=== PATIENT | male | born 1965 | race Caucasian/White ===

== ENCOUNTER → 2016-10-31 | Outpatient (CLI) | payer BC ==
[2016-10-31 09:05] LABS: Basophils # (A) 0.1 k/uL (0-0.2); Basophils % (A) 1 %; CH 31.7; CHCM 34.7; Eosinophils # (A) 0.4 k/uL (0-0.7); Eosinophils % (A) 7 %; HCT 43.1 % (39.0-53.0); HDW 2.72; HGB 14.9 gm/dL (13.0-17.5); Luc # (Auto) 0.21; Luc % (Auto) 4; Lymphocytes # (A) 1.2 k/uL (1.0-4.8); Lymphocytes % (A) 22 %; MCH 31.6 pg (25.0-35.0); MCHC 34.4 g/dL (31.0-37.0); MCV 91.9 fL (80.0-100.0); Mean Platelet Volume 7.9; Monocytes # (A) 0.3 k/uL (0-1.0); Monocytes % (A) 5 %; Neutrophils # (A) 3.4 k/uL (1.3-7.7); Neutrophils % (A) 61 %; RBC 4.69 m/uL (4.30-5.90); RDW 12.4 % (11.5-15.5); WBC 5.6 k/uL (3.8-10.6); WBC (Perox) 5.82
[2016-10-31 11:03] LABS: ALT 36 U/L (21-72); AST 29 U/L (17-59); Alkaline Phosphatase 57 U/L (38-126); Anion Gap 8 mmol/L; Blood Urea Nitrogen 12 mg/dL (9-20); Calcium 9.6 mg/dL (8.4-10.2); Carbon Dioxide 28 mmol/L (22-30); Chloride 104 mmol/L (98-107); Cholesterol 208 mg/dL (<200); Glucose 107 mg/dL (74-99); HDL Cholesterol 59 mg/dL (40-60); Non-African American GFR(MDRD) >60 (>60 ml/min/1.73 sqM); Potassium 4.8 mmol/L (3.5-5.1); Sodium 140 mmol/L (137-145); Total Bilirubin 0.9 mg/dL (0.2-1.3); Total Protein 7.1 g/dL (6.3-8.2); Triglycerides 146 mg/dL (<150)
[2016-10-31 11:35] LABS: Prostate Specific Antigen 0.46 ng/mL (0.00-4.00)
== END ==
LOC: LABWHC1 08:09
PROVIDERS: ATTEND Internal Medicine
DX: Z00.00 Encounter for general adult medical examination without abnormal findings (principal); I10 Essential (primary) hypertension; E78.2 Mixed hyperlipidemia; R53.83 Other fatigue; Z12.5 Encounter for screening for malignant neoplasm of prostate
CPT/HCPCS: 36415; 80053; 80061; 84153; 84402; 84403; 85025

== ENCOUNTER → 2018-08-16 | Outpatient (CLI) | payer BC ==
--- NOTE | 2018-08-16 22:58 | CT ---
EXAMINATION TYPE: CT sinus wo con DATE OF EXAM: 08/16/2018 COMPARISON: None HISTORY: 52-year-old male chronic sinusitis and infections CT DLP: 697 mGycm Automated exposure control for dose reduction was used. TECHNIQUE: Noncontrast axial views of the paranasal sinuses were obtained. Coronal reconstructions pe rformed. FINDINGS: PARANASAL SINUSES: Severe mucosal thickening throughout the ethmoid air cells and complete opacification of the left fro ntal sinus. Partial opacification right frontal sinus. Moderate mucosal thickening bilateral sphenoid sinuses. Frothy opacification in the left maxillary sinus with trace air-fluid level and lobulated s oft tissue thickening along the floor of the sinus. Large 3.6 cm polyp or mucosal retention cyst with in the right maxillary sinus with moderate partial opacification. Reactive wilbert- osteogenesis is not seen. There is no destruction of the osseous conner of the paranasal sinuses. THE NASAL CAVITY: The osteomeatal complexes are opacified. The nasal septum shows slight leftward deviation. There is lobulated soft tissue thickening along the bilateral nasal passages. The imaged brain and orbits are normal in appearance. Mastoid air cells and middle ear cavities are well pneumatized. Reformatted images confirm above findings. IMPRESSION: 1. Findings suggest moderate to severe acute on chronic pansinusitis, likely with underlying sinonasa l polyposis. The osteomeatal complexes are opacified. 2. Leftward nasal septal deviation.
== END | disposition home or self-care (01) ==
LOC: RADCTMAIN 15:23
PROVIDERS: ATTEND Otolaryngology
DX: J34.2 Deviated nasal septum (principal)
CPT/HCPCS: 70486

== ENCOUNTER 2018-10-12 07:14 | Day surgery (SDC) | payer BC ==
[2018-10-10 12:26] VITALS: BMI 27.2
[~2018-10-12 07:14] MED LIST: DEXAMETHASONE SOD PHOSPHATE 10 MG/ML 1 ML VIAL IV ONE; DEXAMETHASONE SOD PHOSPHATE 4 MG/ML 1 ML VIAL IV ONE; FAMOTIDINE 20 MG/2 ML VIAL IV ONE; LACTATED RINGERS 1,000 ML IV SCH; LIDOCAINE 1% 20 ML VIAL (10MG/ML) FOR IV START INTRADERMA PRN; MIDAZOLAM (PF) 2 MG/2 ML VIAL IV PRN; ONDANSETRON 4 MG/2 ML VIAL IVP ONE; SCOPOLAMINE 1.5MG/72HR PATCH TRANSDERM ONE; ceFAZolin 1,000 MG in DEXTROSE/WATER 1 50ML.BAG IV ONE
[2018-10-12 07:46] VITALS: RESP 16
[2018-10-12] MEDS: OXYMETAZOLINE 0.05% NASL SPRAY 1 SPRAY BOTTLE NASAL ONE ×5 (07:49→08:14)
[2018-10-12 08:13] LABS: Glucose,Whole Blood 101 mg/dL (75-99)
[2018-10-12] MEDS ORDERED: LIDOCAINE 1% INJ 10MG/ML (20 ML MDV) ONE (08:44)
[2018-10-12] MEDS ORDERED: ePHEDrine SULFATE/0.9% NACL/PF 50 MG/5 ML SYRINGE IV ONE (08:44)
[2018-10-12] MEDS ORDERED: PROPOFOL 10 MG/ML 20 ML VIAL IV ONE (08:44)
[2018-10-12] MEDS ORDERED: fentaNYL (PF) 50 MCG/ML 2 ML AMP ONE (08:44)
[2018-10-12] MEDS ORDERED: MIDAZOLAM 2 MG/2 ML VIAL ONE (08:44)
[2018-10-12] MEDS ORDERED: DEXAMETHASONE SOD PHOS (MDV) 100 MG/10 ML VIAL ONE (08:44)
[2018-10-12] MEDS ORDERED: SUCCINYLCHOLINE CHLORIDE 100 MG/5 ML SYR IV ONE (08:44)
[2018-10-12] MEDS ORDERED: LIDOCAINE 1%-EPI 1:100,000 20 ML VIAL SUBMUCOSAL ONE (09:06)
--- NOTE | 2018-10-12 10:01 | P.OP ---
Date of Procedure: 10/12/18 Preoperative Diagnosis: Deviated nasal septum Inferior turbinate hypertrophy Chronic sinusitis Sinonasal polyposis Postoperative Diagnosis: Same Procedure(s) Performed: Septoplasty Outfracture and submucous resection of the inferior turbinates Bilateral endoscopic sinus surgery with bilateral maxillary antrostomy with removal of tissue from the maxillary sinuses, bilateral anterior and posterior ethmoidectomy, bilateral frontal and sphenoidotomies including balloon sinus plasty and polypectomies Anesthesia: JUDY Surgeon: Kurt Lagunas Estimated Blood Loss (ml): 15 Pathology: other (Nasal septal cartilage and bone and sinus contents) Condition: stable Disposition: PACU Indications for Procedure: This is a 52-year-old white male who has difficulties with chronic nasal airway obstruction and congestion as well as recurrent and chronic sinusitis - physical exam and computed tomography scan revealed deviated septum and inferior turbinate hypertrophy sinonasal polyposis Operative Findings: Nasal septum deviated to the left, inferior turbinate hypertrophy bilaterally, diffuse sinonasal polyps in the middle meatus as well as maxillary sinuses and ethmoid sinuses. Sphenoid sinuses and frontal sinuses showed mild to moderate mucosal thickening and obstruction of the ostia. Description of Procedure: The patient was brought in the operative suite and placed in a supine position. The patient underwent induction of general anesthesia with oral endotracheal intubation without difficulty. The patient was prepped and draped in usual aseptic fashion with the orbits in the operating field for monitoring throughout the case and the computed tomography scan on the computer screen for review throughout the case also. 1% lidocaine with 1-100,000 epinephrine was infused submucosally both sides nasal septum as well as lateral nasal wall and anterior tips the middle turbinates as well as the polyps in the middle meatus themselves. While this was taking vasoconstrictive effect the inferior turbinates were infractured the [place] elevator partial submucous resection inferior turbinates performed with Coblation device ablating a portion of the submucosal soft tissue and then outfractured with the [place] elevator. A left hemitransfixion incision was made with the mucoperichondrial and mucoperiosteal flap on the left elevated. Bony cartilaginous junction was disarticulated and mucoperiosteal flap on the right was elevated. Bony nasal septal deformities were removed Yi forceps. An inferior cartilaginous strip was removed leaving a full 1.5 cm caudal strut. Checking intranasally this corrected the nasoseptal deformities and the hemitransfixion incision was closed with a running 4-0 chromic suture. Full 0 endoscopic examination is performed bilaterally. Beginning on the left the polyps were debrided with microdebrider and the maxillary ostium was located with a ballpoint probe. Infundibulotomy was performed followed by uncinectomy. The maxillary antrostomy was enlarged at the expense of the anterior and posterior fontanelle taking care anteriorly not to injure the lacrimal bone. Polyps removed from the maxillary sinus with 30 endoscope and giraffe forceps. Anterior and posterior ethmoidectomy performed with microdebrider including polypectomy. Balloon sinus plasty with the [employer] white guided system was performed of the frontal and sphenoid sinuses as well as these openings enlarged further with forceps and the sinuses were explored endoscopically. Once this was completed attention was turned to the right where the procedures were followed as they were in the left including polypectomy infundibulotomy uncinectomy maxillary antrostomy with removal of tissue from the maxillary sinus anterior and posterior ethmoidectomy and frontal osteotomy and sphenoid osteotomy with exploration. There were small polyps in the sphenoid sinuses bilaterally which were removed bilaterally. Once this was completed a pledget of standard nasal pore nasal dressing was placed the middle meatus under direct visualization and bilateral Farfan airway splint coated bacitracin ointment were placed in nasal cavities and sutured trans-septally with a 4-0 nylon suture. The patient was then allowed to emerge from general anesthesia having tolerated procedure well and was extubated in the operating suite and transferred to postop recovery area in satisfactory condition.
[2018-10-12 10:11] VITALS: TEMP 97.4
[2018-10-12] MEDS: HYDROmorphone 0.5 MG/0.5 ML SYRINGE IVP PRN ×2 (10:19→10:26)
[2018-10-12 11:29] VITALS: BP 137/93; PULSE 89
[2018-10-12] MEDS ORDERED: HYDROcodone/APAP 7.5-325MG 1 EACH TAB PO ONE (11:42)
== END 2018-10-12 12:24 | disposition home or self-care (01) ==
LOC: OR 07:14
PROVIDERS: ATTEND Otolaryngology
DX: J34.2 Deviated nasal septum (principal); J34.3 Hypertrophy of nasal turbinates; J32.9 Chronic sinusitis, unspecified; J33.8 Other polyp of sinus; I10 Essential (primary) hypertension; E78.5 Hyperlipidemia, unspecified; Z79.899 Other long term (current) drug therapy; Z79.1 Long term (current) use of non-steroidal anti-inflammatories (NSAID); Z79.52 Long term (current) use of systemic steroids; Z90.79 Acquired absence of other genital organ(s); Z85.47 Personal history of malignant neoplasm of testis
CPT/HCPCS: 88305; 88300; 30520; 30140; 31267; 31253; 31259; C1726; J2250; J1100 ×2; J2405; J2001; J3010; J0690; J0330; J2704; J1170

== ENCOUNTER 2019-10-03 04:28 | Emergency (ER) | payer BC ==
[2019-10-03] MEDS ORDERED: FAMOTIDINE 20 MG/2 ML VIAL IV STA (04:49)
[2019-10-03] MEDS ORDERED: methylPREDNISolone SOD SUCCI 125 MG/2 ML VIAL IV STA (04:49)
--- NOTE | 2019-10-03 05:04 | ED ---
General Adult HPI <John Davis - Last Filed: 10/03/19 07:08> - General Source: patient, family Mode of arrival: ambulatory Limitations: no limitations - History of Present Illness Onset/Timin -: hour(s) Location: face Consistency: constant Improves with: none Worsens with: none Associated Symptoms: denies other symptoms Treatments Prior to Arrival: other (Benadryl) <Tod Arellano - Last Filed: 10/03/19 21:14> - General Chief complaint: Allergic Reaction Stated complaint: Allergic Reaction Time Seen by Provider: 10/03/19 04:42 - History of Present Illness Initial comments: This patient is 53-year-old man presenting to be evaluated for what he believes is ALLERGIC reaction. The patient states that he woke from sleep with a feeling like his face was uncomfortable. He noticed that there was swelling at the right corner of his mouth. This progressed to involve the lips and cheek. Patient is not aware of any new exposures. No dyspnea or wheezing. No nausea, vomiting, or diarrhea. No pruritus. Patient has history of hypertension and does take benazepril. Patient states that he took a dose of Benadryl and when things did not seem to be improving and were in fact may be getting worse he felt he should be evaluated (Tod Arellano) - Related Data Home Medications Medication Instructions Recorded Confirmed Benazepril HCl [Lotensin] 20 mg PO HS 10/10/18 10/10/18 Cetirizine HCl [Zyrtec] 10 mg PO DAILY 10/10/18 10/10/18 Cod Liver Oil 1 each PO DAILY 10/10/18 10/10/18 Ibuprofen [Motrin] 800 mg PO Q6H PRN 10/10/18 10/10/18 Multivit-Min/Ferrous Sulfate [One 1 each PO DAILY 10/10/18 10/10/18 Daily Multivitamin-Mineral] amLODIPine BESYLATE 5 mg PO HS 10/10/18 10/10/18 methylPREDNISolone Dose Pack 4 mg PO DIRECTED 10/10/18 10/10/18 [Medrol Dose Pack] Allergies Allergy/AdvReac Type Severity Reaction Status Date / Time No Known Allergies Allergy Verified 10/03/19 04:35 Review of Systems ROS Other: All systems not noted in ROS Statement are negative. <John Davis - Last Filed: 10/03/19 07:08> ROS Other: All systems not noted in ROS Statement are negative. Constitutional: Denies: fever, chills Eyes: Denies: eye pain ENT: Denies: throat pain, dental pain, congestion Respiratory: Denies: cough, dyspnea, wheezes, stridor Cardiovascular: Denies: chest pain, palpitations, syncope Gastrointestinal: Denies: abdominal pain, nausea, vomiting, diarrhea Skin: Reports: as per HPI, other (Rectal facial swelling). Denies: rash Neurological: Denies: headache <Tod Arellano - Last Filed: 10/03/19 21:14> ROS Statement: Those systems with pertinent positive or pertinent negative responses have been documented in the HPI. Past Medical History Past Medical History: Cancer, Hyperlipidemia, Hypertension Additional Past Medical History / Comment(s): ALLERGIES. TESTICULAR CA 1998. SINUS PROBLEMS W/ POLYPS. History of Any Multi-Drug Resistant Organisms: None Reported Past Surgical History: Cholecystectomy Additional Past Surgical History / Comment(s): TESTICLE REMOVAL Past Anesthesia/Blood Transfusion Reactions: No Reported Reaction Past Psychological History: No Psychological Hx Reported Smoking Status: Never smoker Past Alcohol Use History: Occasional Past Drug Use History: None Reported - Past Family History Mother Family Medical History: Cancer Additional Family Medical History / Comment(s): PANCREATIC Father Family Medical History: Cancer Additional Family Medical History / Comment(s): LUNG CA <Tod Arellano - Last Filed: 10/03/19 21:14> General Exam Limitations: no limitations General appearance: alert, in no apparent distress Head exam: Present: atraumatic, normocephalic Eye exam: Present: normal appearance. Absent: scleral icterus, conjunctival injection, periorbital swelling, periorbital tenderness ENT exam: Present: other (There is angioedema involving the right side of the upper and lower lip as well as the adjacent cheek.) Neck exam: Present: normal inspection, full ROM. Absent: tenderness, meningismus, lymphadenopathy Respiratory exam: Present: normal lung sounds bilaterally. Absent: respiratory distress, wheezes, rales, rhonchi, stridor Cardiovascular Exam: Present: regular rate, normal rhythm, normal heart sounds. Absent: systolic murmur, diastolic murmur, rubs, gallop GI/Abdominal exam: Present: soft. Absent: distended, tenderness, guarding, rebound, rigid, mass <TrachyTod - Last Filed: 10/03/19 21:14> Course Vital Signs 10/03/19 10/03/19 10/03/19 04:30 05:18 05:20 Temperature 98.1 F Pulse Rate 96 Respiratory 20 Rate Blood Pressure 143/100 137/90 137/90 O2 Sat by Pulse 100 96 97 Oximetry 10/03/19 10/03/19 10/03/19 05:22 05:24 05:26 Temperature Pulse Rate Respiratory Rate Blood Pressure 137/90 137/90 137/90 O2 Sat by Pulse 96 95 96 Oximetry 10/03/19 10/03/19 10/03/19 05:28 05:30 05:32 Temperature Pulse Rate Respiratory Rate Blood Pressure 137/90 137/90 137/90 O2 Sat by Pulse 95 96 96 Oximetry 10/03/19 10/03/19 10/03/19 05:34 05:36 05:38 Temperature Pulse Rate Respiratory Rate Blood Pressure 137/90 137/90 137/90 O2 Sat by Pulse 95 95 95 Oximetry 10/03/19 10/03/19 10/03/19 05:40 05:42 05:44 Temperature Pulse Rate Respiratory Rate Blood Pressure 137/90 137/90 137/90 O2 Sat by Pulse 96 96 97 Oximetry 10/03/19 10/03/19 10/03/19 05:46 05:48 05:50 Temperature Pulse Rate Respiratory Rate Blood Pressure 137/90 137/90 137/90 O2 Sat by Pulse 97 95 96 Oximetry 10/03/19 10/03/19 10/03/19 05:52 05:54 05:56 Temperature Pulse Rate 84 Respiratory 11 L Rate Blood Pressure 137/90 144/88 144/88 O2 Sat by Pulse 98 96 98 Oximetry 10/03/19 10/03/19 10/03/19 05:58 06:00 06:02 Temperature Pulse Rate 97 93 Respiratory 20 14 Rate Blood Pressure 144/88 144/88 144/88 O2 Sat by Pulse Oximetry 10/03/19 10/03/19 10/03/19 06:04 06:06 06:08 Temperature Pulse Rate 94 96 96 Respiratory 20 15 6 L Rate Blood Pressure 144/88 144/88 144/88 O2 Sat by Pulse Oximetry 10/03/19 10/03/19 10/03/19 06:10 06:12 06:14 Temperature Pulse Rate 97 94 101 H Respiratory 11 L 15 16 Rate Blood Pressure 144/88 144/88 144/88 O2 Sat by Pulse Oximetry 10/03/19 10/03/19 10/03/19 06:16 06:18 06:20 Temperature Pulse Rate 99 99 98 Respiratory 14 14 16 Rate Blood Pressure 144/88 144/88 144/88 O2 Sat by Pulse Oximetry 10/03/19 10/03/19 10/03/19 06:22 06:50 07:13 Temperature 98 F Pulse Rate 101 H 110 H 104 H Respiratory 15 16 20 Rate Blood Pressure 144/88 136/82 123/86 O2 Sat by Pulse 97 95 Oximetry 10/03/19 08:02 Temperature 98 F Pulse Rate 91 Respiratory 18 Rate Blood Pressure 126/76 O2 Sat by Pulse 94 L Oximetry Disposition Is patient prescribed a controlled substance at d/c from ED?: No Time of Disposition: 07:08 <John Davis - Last Filed: 10/03/19 07:08> Is patient prescribed a controlled substance at d/c from ED?: No <Tod Arellano - Last Filed: 10/03/19 21:14> Clinical Impression: Angioedema Disposition: HOME SELF-CARE Condition: Good Instructions (If sedation given, give patient instructions): Angioedema (ED) Additional Instructions: Stopped taking Lotensin and follow up with your doctor for another blood pressure medication. Referrals: Sourav Amaya MD [Primary Care Provider] - 1-2 days
[2019-10-03] MEDS ORDERED: EPINEPHrine 1 MG/ML 1 ML AMP IM STA (05:44)
[2019-10-03] MEDS ORDERED: TRANEXAMIC ACID 1,000 MG in SODIUM CHLORIDE 0.9% 100 ML IVPB ONE (06:00)
[2019-10-03] MEDS ORDERED: diphenhydrAMINE 50 MG/ML 1 ML VIAL IVP STA ×2 (06:41→06:43)
[2019-10-03 07:14] VITALS: TEMP 98
[2019-10-03 08:06] VITALS: BP 126/76; PULSE 91; RESP 18
== END 2019-10-03 08:02 | disposition home or self-care (01) ==
LOC: EC 04:28
DX: T78.3XXA Angioneurotic edema, initial encounter (principal); I10 Essential (primary) hypertension; Z79.52 Long term (current) use of systemic steroids; Z79.899 Other long term (current) drug therapy; Z91.09 Other allergy status, other than to drugs and biological substances; Z85.47 Personal history of malignant neoplasm of testis; Z90.79 Acquired absence of other genital organ(s); Z53.8 Procedure and treatment not carried out for other reasons
CPT/HCPCS: 99283; 96365; 96375 ×3; 96372; J0171; J1200; J2930

== ENCOUNTER → 2021-11-19 | Outpatient (CLI) | payer BC ==
[2021-11-19 14:25] LABS: ALT 17 U/L (10-49); AST 23 U/L (14-35); African American GFR (CKD) 86.9 (60.0-200.0); Albumin 4.3 g/dL (3.8-4.9); Albumin/Globulin Ratio 1.92 (1.60-3.17); Alkaline Phosphatase 60 U/L (41-126); BUN/Creat Ratio 10.83 Ratio (12.00-20.00); Blood Urea Nitrogen 11.8 mg/dL (9.0-27.0); Calcium 8.9 mg/dL (8.7-10.3); Carbon Dioxide 26.1 mmol/L (20.0-27.5); Chloride 104 mmol/L (96-109); Chol/HDL Ratio 3.56 Ratio; Globulin 2.2 g/dL (1.6-3.3); Glucose 112 mg/dL (70-110); Potassium 4.5 mmol/L (3.5-5.5); Sodium 138 mmol/L (135-145); Total Protein 6.5 g/dL (6.2-8.2)
== END | disposition home or self-care (01) ==
LOC: LABWHC1 08:50
PROVIDERS: ATTEND Nurse Practitioner
DX: I10 Essential (primary) hypertension (principal)
CPT/HCPCS: 36415; 80053; 80061

== ENCOUNTER → 2021-12-30 | Outpatient (CLI) | payer BC ==
[~2021-12-30] MED LIST changes: -DEXAMETHASONE SOD PHOSPHATE 10 MG/ML 1 ML VIAL IV ONE; -DEXAMETHASONE SOD PHOSPHATE 4 MG/ML 1 ML VIAL IV ONE; -FAMOTIDINE 20 MG/2 ML VIAL IV ONE; -LACTATED RINGERS 1,000 ML IV SCH; -LIDOCAINE 1% 20 ML VIAL (10MG/ML) FOR IV START INTRADERMA PRN; -MIDAZOLAM (PF) 2 MG/2 ML VIAL IV PRN; -ONDANSETRON 4 MG/2 ML VIAL IVP ONE; +REGADENOSON 0.4 MG/5 ML SYRINGE IV PRN; -SCOPOLAMINE 1.5MG/72HR PATCH TRANSDERM ONE; -ceFAZolin 1,000 MG in DEXTROSE/WATER 1 50ML.BAG IV ONE
--- NOTE | 2021-12-30 12:54 | NM ---
EXAMINATION TYPE: NM stress lexiscan cardiolite DATE OF EXAM: 12/30/2021 COMPARISON: NONE HISTORY: Essential hypertension. Family history of heart attack. Chest pressure and pain. TECHNIQUE: After the intravenous administration of 10.08 mCi Tc 99m Sestamibi - Cardiolite resting S PECT images acquired 60 minutes post injection. The patient received 0.4mg Lexiscan, 23.5 mCi Tc 99m Sestamibi - Stress images obtained [address] injection FINDINGS: Review of stress and rest SPECT images demonstrates no distinct perfusion abnormality. Gated analysi s shows normal wall motion with an estimated left ventricular ejection fraction of 63 %. IMPRESSION: No scintigraphic evidence for reversible ischemia.
--- NOTE | 2021-12-31 11:05 | CA ---
Lexiscan Nuclear Stress Test Report Name: Zaheer العلي Exam Date: 12/30/2021 11:21 Exam Location: [facility] Ht (in): 74 Wt (lb): 228 BSA: 2.30 Ordering Phys: Roger Calles MD Referring Phys: Jossy Mcconnell Technologist: Meet King Age: 56 Gender: M : 1965 Procedure CPT: Indications: I10 Hypertension R07.89 chest pressure ICD-10 Codes: Patient History: Chest pressure, hypertension, Family history of heart disease Medications: Diclofenac, citrizine, Clonidine, Singulair, Primatine, So Meds past 24 hrs: Pretest Chest Pain: STRESS TEST Lexiscan Protocol Exercise Duration (min:sec): 02:[address] Depressions (mm): Angina Score: Amin Score: Resting HR (bpm): 81 Peak HR (bpm): 102 Resting BP (mmHg): 156 / 103 Peak BP (mmHg): 166 / 113 MPHR: 162 Target HR: 138 % MPHR: 63 METS: 1.0 Total Dose: Peak Dose: Atropine: Double Product: 54642 BP Response: Stress Termination: Infusion complete Stress Symptoms: No chest pain or symptoms Stress Summary: ECG ANALYSIS Resting ECG: Stress ECG: CONCLUSIONS Baseline heart rate 81 beats a minute, Baseline blood pressure 150 60 103 mmHg Baseline 12 EKG shows sinus rhythm with normal ST segments Patient received Lexiscan infusion per protocol There is no seizures for ischemia no arrhythmias noted Heart rate and blood pressure remained stable Nuclear portion will be reported separately Dr. Yared Fernandes MD (Electronically Signed) Final Date: 31 Dec 2021 11:04
== END | disposition home or self-care (01) ==
LOC: RADNMMAIN 08:01
PROVIDERS: ATTEND Family Medicine
DX: I10 Essential (primary) hypertension (principal); R07.89 Other chest pain; Z82.49 Family history of ischemic heart disease and other diseases of the circulatory system
CPT/HCPCS: 93017; 78452; A9500; J2785

== ENCOUNTER → 2022-02-18 | Outpatient (CLI) | payer BC ==
--- NOTE | 2022-02-18 12:39 | CONS ---
CONSULTATION 56-year-old gentleman has been evaluated in [facility] for possible obstructive sleep apnea-hypopnea syndrome. HISTORY OF PRESENT ILLNESS/SLEEP-WAKE EVALUATION: SLEEP SCHEDULE: Patient's usual sleep schedule from 10:30 p.m. to 6:00 am basically 7 days a week. FALLING ASLEEP: Sometimes he has problems with falling asleep. He used to read in the bedroom. DURING SLEEP: He sleeps on the back and side position. He snores. Sometimes sleeps on the chair and wakes up from sleep with episodes of gasping for air and dry mouth up to 3 times and up to 2 episodes of nocturia. Sometimes symptoms of restless legs. No history of hypnagogic hallucinations, sleep paralysis or cataplexy. DURING THE DAY/SLEEP WAKE EVALUATION: In the morning the patient wakes up tired, falling asleep during the day. [place] Sleepiness Scale is 8. Sometimes he takes naps during the day. He drinks up to 4 coffee a day. MEDICAL HISTORY: Positive for hypertension, allergy, COVID-19 in November of 2020, right testicle cancer. PAST SURGICAL HISTORY: Surgical treatment of right testicular cancer in 1998, cholecystectomy. MEDICATIONS: Metoprolol 100 mg once a day, montelukast 10 mg once a day, Diclofenac misoprostol 75- 100 mg once a day, once a day, the patient is planning to start new medication for blood pressures today following recommendation of his primary care doctor. SOCIAL HISTORY: Negative for smoking, alcohol consumption occasional. FAMILY HISTORY: Hypertension, snoring, bronchitis. REVIEW OF SYSTEMS: Snoring, multiple awakenings from sleep, episodes of sleepiness during the day. PHYSICAL EXAM: Pleasant gentleman without distress. BP 155/104, HR 65, height 6 feet and 0.5 inches, weight 229 pounds, body mass index 29.1, temperature 97.0, oxygen saturation at room air 98%. Oropharynx: Low position of soft palate, Mallampati 3. Neck is wide 18 inches in circumference. Neck: Supple, no JVD. Thyroid is not palpable. LUNGS: Clear to percussion and to auscultation. Good air exchange. No wheezing or rhonchi. HEART: S1, S2 regular. No murmurs, gallops, or rubs. ABDOMEN: Soft and nontender. Bowel sounds are present. No organomegaly appreciated. EXTREMITIES: No clubbing or cyanosis. FUND DIRECTOR: Awake, alert, and oriented X3. Cranial nerves 2 to 7 intact. There is no fasciculation or atrophy. noted. No focal deficits observed. IMPRESSION: 1. Snoring, multiple awakenings from sleep with gasping for air, low position of soft palate, Mallampati 3, wide neck, 18 inches in circumference, episodes of sleepiness, obstructive sleep apnea-hypopnea syndrome. 2. Overweight, borderline to obesity, BMI 29.1. 3. Hypertension. 4. Status post COVID-19 in November 2020. 5. ALLERGIES. 6. History of right testicular cancer, treated surgically in 1998. 7. Status post cholecystectomy. PLAN: 1. Polysomnography for evaluation of patient's breathing during sleep. 2. CPAP/BiPAP titration if sleep study confirms obstructive sleep apnea-hypopnea syndrome. 3. Preferable position during sleep on the side. 4. No driving if patient feels any sleepiness. 5. I will see patient for follow up visit to explain results of testing and following plan. Thank you very much for referring this patient for consultation. Sincerely, Roque Simmons MD, PhD, FAASM Diplomat of [place] [employer] Sleep Medicine Board of [place] [employer] Medical Billing Associate of [facility] [place] MMODL / IJN: [id number] /
== END ==
LOC: SLEEP 10:36
PROVIDERS: ATTEND Internal Medicine
DX: G47.33 Obstructive sleep apnea (adult) (pediatric) (principal); E66.3 Overweight; Z68.29 Body mass index [BMI] 29.0-29.9, adult; I10 Essential (primary) hypertension; Z86.16 Personal history of COVID-19; T78.40XA Allergy, unspecified, initial encounter; Z90.49 Acquired absence of other specified parts of digestive tract; Z85.47 Personal history of malignant neoplasm of testis; Z98.890 Other specified postprocedural states; Z79.899 Other long term (current) drug therapy
CPT/HCPCS: 99211

== ENCOUNTER 2022-02-26 02:13 | Emergency (ER) | payer BC ==
--- NOTE | 2022-02-26 02:31 | ED ---
Allergic Reaction HPI - General Chief complaint: Allergic Reaction Stated complaint: allergic reaction Time Seen by Provider: 02/26/22 02:30 Source: patient, family, RN notes reviewed, old records reviewed Mode of arrival: ambulatory Limitations: no limitations - History of Present Illness Initial Comments: This is a 48-year-old male to the emergency department for evaluation patient presents today for evaluation regards to ALLERGIC reaction. Significant swelling. No travel history or sick contacts. No fever cough or congestion. Patient does have history of food ALLERGY history of angioedema presents with those findings here today. Patient did take all at antihistamines and steroids here in the ER MD Complaint: allergic reaction, facial swelling -: days(s) Exposure: food Symptoms: facial swelling, lip swelling Severity: moderate Treatment Prior to Arrival: none Previous Allergy History: angioedema - Related Data Home Medications Medication Instructions Recorded Confirmed Benazepril HCl [Lotensin] 20 mg PO HS 10/10/18 10/10/18 Cetirizine HCl [Zyrtec] 10 mg PO DAILY 10/10/18 10/10/18 Cod Liver Oil 1 each PO DAILY 10/10/18 10/10/18 Ibuprofen [Motrin] 800 mg PO Q6H PRN 10/10/18 10/10/18 Multivit-Min/Ferrous Sulfate [One 1 each PO DAILY 10/10/18 10/10/18 Daily Multivitamin-Mineral] amLODIPine BESYLATE 5 mg PO HS 10/10/18 10/10/18 methylPREDNISolone Dose Pack 4 mg PO DIRECTED 10/10/18 10/10/18 [Medrol Dose Pack] Allergies Allergy/AdvReac Type Severity Reaction Status Date / Time YANET Inhibitors Allergy Swelling Verified 02/26/22 02:23 ARB-Angiotensin Receptor Allergy Swelling Verified 02/26/22 02:23 Antagonist mold Allergy Rash/Hives Verified 02/26/22 02:23 tree nut Allergy Rash/Hives Verified 02/26/22 02:23 Review of Systems ROS Statement: Those systems with pertinent positive or pertinent negative responses have been documented in the HPI. ROS Other: All systems not noted in ROS Statement are negative. Past Medical History Past Medical History: Cancer, Hyperlipidemia, Hypertension Additional Past Medical History / Comment(s): ALLERGIES. TESTICULAR CA 1998. SINUS PROBLEMS W/ POLYPS. History of Any Multi-Drug Resistant Organisms: None Reported Past Surgical History: Cholecystectomy Additional Past Surgical History / Comment(s): TESTICLE REMOVAL Past Anesthesia/Blood Transfusion Reactions: No Reported Reaction Past Psychological History: No Psychological Hx Reported Smoking Status: Never smoker Past Alcohol Use History: Occasional Past Drug Use History: None Reported - Past Family History Mother Family Medical History: Cancer Additional Family Medical History / Comment(s): PANCREATIC Father Family Medical History: Cancer Additional Family Medical History / Comment(s): LUNG CA General Exam Limitations: no limitations General appearance: alert, in no apparent distress Head exam: Present: atraumatic, normocephalic, normal inspection Eye exam: Present: normal appearance, PERRL, EOMI. Absent: scleral icterus, conjunctival injection, periorbital swelling ENT exam: Present: normal exam, mucous membranes moist, other (Minimal lower lip swelling) Neck exam: Present: normal inspection. Absent: tenderness, meningismus, lymphadenopathy Respiratory exam: Present: normal lung sounds bilaterally. Absent: respiratory distress, wheezes, rales, rhonchi, stridor Cardiovascular Exam: Present: regular rate, normal rhythm, normal heart sounds. Absent: systolic murmur, diastolic murmur, rubs, gallop, clicks GI/Abdominal exam: Present: soft, normal bowel sounds. Absent: distended, tenderness, guarding, rebound, rigid Extremities exam: Present: normal inspection, full ROM, normal capillary refill. Absent: tenderness, pedal edema, joint swelling, calf tenderness Back exam: Present: normal inspection Neurological exam: Present: alert, oriented X3, CN II-XII intact Psychiatric exam: Present: normal affect, normal mood Skin exam: Present: warm, dry, intact, normal color. Absent: rash Course Vital Signs 02/26/22 02/26/22 02:17 03:43 Temperature 97.9 F 97.6 F Pulse Rate 109 H 94 Respiratory 20 18 Rate Blood Pressure 151/97 153/93 O2 Sat by Pulse 98 97 Oximetry - Reevaluation(s) Reevaluation #1: 02/26/22 Medical record is reviewed Reevaluation #2: 02/26/22 Patient feels well here in the emergency department continues to feel well Reevaluation #3: 02/26/22 Patient informed results questions answered patient is well versed in taking care of ALLERGIC reaction and angioedema Medical Decision Making - Medical Decision Making 56 male to the emergency department with history of angioedema severe ALLERGIC reactions. Patient does have all medications to treat ALLERGIC reaction home blood presents DF for evaluation to give himself an EpiPen. Patient is normal here in the ER feels well EKG is negative and he can be discharged home - EKG Data -: EKG Interpreted by Me (EKG shows sinus rhythm 84 MT 120 QRS 99 QTC 4:30) Disposition Clinical Impression: Allergic reaction, Food allergy, Angioedema Disposition: HOME SELF-CARE Condition: Good Instructions (If sedation given, give patient instructions): Anaphylaxis (ED) Is patient prescribed a controlled substance at d/c from ED?: No Referrals: Brandan Mckinnon MD [Primary Care Provider] - 1-2 days Time of Disposition: 03:20
[2022-02-26 03:45] VITALS: BP 153/93; PULSE 94; RESP 18; TEMP 97.6
== END 2022-02-26 03:45 | disposition home or self-care (01) ==
LOC: EC 02:13
DX: T78.1XXA Other adverse food reactions, not elsewhere classified, initial encounter (principal); T78.3XXA Angioneurotic edema, initial encounter; E78.5 Hyperlipidemia, unspecified; I10 Essential (primary) hypertension; Z88.8 Allergy status to other drugs, medicaments and biological substances; Z91.041 Radiographic dye allergy status; Z91.09 Other allergy status, other than to drugs and biological substances
CPT/HCPCS: 93005; 99283

== ENCOUNTER → 2022-03-11 | Outpatient (CLI) | payer BC ==
[2022-03-11 17:08] LABS: Carbon Dioxide 25.7 mmol/L (20.0-27.5); Chloride 103 mmol/L (96-109); Glucose 106 mg/dL (70-110); Sodium 138 mmol/L (135-145)
[2022-03-11 17:09] LABS: ALT 21 U/L (10-49); AST 28 U/L (14-35); African American GFR (CKD) 88.2 (60.0-200.0); Albumin 4.2 g/dL (3.8-4.9); Albumin/Globulin Ratio 1.58 (1.60-3.17); Alkaline Phosphatase 72 U/L (41-126); BUN/Creat Ratio 13.46 Ratio (12.00-20.00); Blood Urea Nitrogen 14.4 mg/dL (9.0-27.0); Calcium 9.2 mg/dL (8.7-10.3); Chol/HDL Ratio 4.03 Ratio; Globulin 2.6 g/dL (1.6-3.3); LDL Cholesterol,Calculated 139.3 mg/dL (0.0-131.0); Non-African American GFR(CKD) 76.1 (60.0-200.0); Total Protein 6.8 g/dL (6.2-8.2)
[2022-03-11 17:22] LABS: Basophils # (A) 0.06 X 10*3/uL (0.00-0.10); Basophils % (A) 1.1 %; Eosinophils # (A) 0.29 X 10*3/uL (0.04-0.35); Eosinophils % (A) 5.3 %; HGB 14.2 g/dL (13.0-17.0); Immature Grans, Automated 1.1 %; Lymphocytes # (A) 1.31 X 10*3/uL (0.90-5.00); Lymphocytes % (A) 23.9 %; MCH 31.1 pg (27.0-32.0); MCHC 33.8 g/dL (32.0-37.0); MCV 92.1 fL (80.0-97.0); Mean Platelet Volume 10.8 fL (9.5-12.2); Monocytes # (A) 0.49 X 10*3/uL (0.20-1.00); NRBC Per 100 WBC 0 /100 WBCS (0.0-0.0); Neutrophils # (A) 3.26 X 10*3/uL (1.80-7.70); Neutrophils % (A) 59.6 %; Platelet Count 230 X 10*3/uL (140-440); RBC 4.56 X 10*6/uL (4.40-5.60); WBC 5.47 X 10*3/uL (4.50-10.00)
== END | disposition home or self-care (01) ==
LOC: LABWHC1 08:57
PROVIDERS: ATTEND Internal Medicine
DX: Z12.5 Encounter for screening for malignant neoplasm of prostate (principal); I10 Essential (primary) hypertension
CPT/HCPCS: 80061; 80053; 84443; 85025; 36415; G0103

== ENCOUNTER → 2022-09-09 | Outpatient (CLI) | payer BC ==
--- NOTE | 2022-09-09 08:49 | XR ---
EXAMINATION TYPE: XR elbow complete LT DATE OF EXAM: 09/09/2022 8:21 AM INDICATION: Patient age:Male; 56 years old; Reason for study: M25.522 LT ELBOW PAIN; COMPARISON: None TECHNIQUE: The left elbow was examined in AP, lateral, and oblique projections. FINDINGS: No evidence of any acute osseous pathology, joint dislocation, or soft tissue swelling is n oted. No evidence of joint effusion is present. IMPRESSION: No evidence of acute fracture.
[2022-09-09 16:39] LABS: ALT 23 U/L (10-49); AST 28 U/L (14-35); African American GFR (CKD) 75.3 (60.0-200.0); Albumin 4.5 g/dL (3.8-4.9); Albumin/Globulin Ratio 1.91 (1.60-3.17); Alkaline Phosphatase 74 U/L (41-126); BUN/Creat Ratio 10.74 Ratio (12.00-20.00); Blood Urea Nitrogen 13.1 mg/dL (9.0-27.0); Calcium 9.4 mg/dL (8.7-10.3); Carbon Dioxide 26.5 mmol/L (20.0-27.5); Chloride 103 mmol/L (96-109); Chol/HDL Ratio 3.96 Ratio; Globulin 2.3 g/dL (1.6-3.3); Glucose 104 mg/dL (70-110); Non-African American GFR(CKD) 64.9 (60.0-200.0); Potassium 4.1 mmol/L (3.5-5.5); Sodium 140 mmol/L (135-145); Total Protein 6.8 g/dL (6.2-8.2)
== END | disposition home or self-care (01) ==
LOC: LABWHC1 07:30
PROVIDERS: ATTEND Internal Medicine
DX: I10 Essential (primary) hypertension (principal); M85.80 Other specified disorders of bone density and structure, unspecified site; M25.522 Pain in left elbow
CPT/HCPCS: 36415; 80053; 80061; 82306

== ENCOUNTER → 2023-03-09 | Outpatient (CLI) | payer BC ==
--- NOTE | 2023-03-09 08:25 | XR ---
EXAMINATION TYPE: XR Hip Complete RT DATE OF EXAM: 03/09/2023 7:49 AM INDICATION: Patient age:Male; 57 years old; Reason for study: M25.551; [facility]. COMPARISON: None. TECHNIQUE: The right hip was examined in the frontal and lateral projections FINDINGS: No evidence for acute process, joint dislocation or significant soft tissue swelling. Osteo phyte formation of the superior acetabulum of the hips. Multiple pelvic fullness are present. Surgica l clip project over the sacrum. IMPRESSION: 1. No evidence for acute process. 2. Mild hip osteoarthrosis.
--- NOTE | 2023-03-09 12:03 | BD ---
EXAMINATION TYPE: Axial Bone Density DATE OF EXAM: 03/09/2023 CLINICAL HISTORY: 57 years old Male. ICD-10 CODE: M85.80 OSTEOPENIA Height: 72 Weight: 232.9 FRAX RISK QUESTIONS: Alcohol (3 or more units per day): no Family History (Parent hip fracture): no Glucocorticoids (More than 3mos): no (Ex: prednisone, prednisolone, methylprednisolone, dexamethasone, and hydrocortisone). History of Fracture in Adulthood: no Secondary Osteoporosis: 1. Type 1 Diabetes: no 2. Hyperthyroidism: no 3. 4. Malnutrition: no 5. Chronic liver disease: no Rheumatoid Arthritis: no Current Tobacco Use: no RISK FACTORS HISTORY OF: Surgery to Spine/Hip(right/left)/Wrist (right/left): no Family History of Osteoporosis: yes Active: yes Diet low in dairy products/other sources of calcium: yes Lost more than 2 inches in height since high school: yes MEDICATIONS: Additional History: EXAM MEASUREMENTS: Bone mineral densitometry was performed using the [employer] System. Bone mineral density as measured about the Lumbar spine is: ----- L1-L4(G/cm2): 1.220 T Score Values are as follows: ----- L1: -0.7 ----- L2: -0.4 ----- L3: 0.7 ----- L4: 1.4 ----- L1-L4: 0.3 Z Score Values are as follows: ----- L1: -1.4 ----- L2: -1.1 ----- L3: 0.0 ----- L4: 0.7 ----- L1-L4: -0.4 Bone mineral density : baseline Bone mineral density about the R hip (g/cm2): 0.999 Bone mineral density about the L hip (g/cm2): 0.997 T Score values are as follows: -----R Neck: 0.1 -----L Neck: -0.1 -----R Total: -0.1 -----L Total: *0.1 Z Score values are as follows: -----R Neck: 0.2 -----L Neck: 0.0 -----R Total: -0.7 -----L Total: -0.7 Bone mineral density : baseline FRAX%s: The graph provided illustrates a 4.3% chance for a major osteoporotic fx and a 0.2% chance fo r the hips probability for fx in 10 years time. IMPRESSION: Osteopenia (T Score between -2.5 and -1). There is slightly increased risk of fracture and the patient may be considered for treatment. Re-Screen 2-5 years. NOTE: T-SCORE=SD OF THE YOUNG ADULT MEAN.
== END | disposition home or self-care (01) ==
LOC: RADBDWWP 07:10
PROVIDERS: ATTEND Internal Medicine
DX: M16.11 Unilateral primary osteoarthritis, right hip (principal); M85.88 Other specified disorders of bone density and structure, other site
CPT/HCPCS: 73502; 77080

== ENCOUNTER → 2023-10-06 | Outpatient (CLI) | payer BC ==
[2023-10-06 16:13] LABS: ALT 35 U/L (10-49); AST 28 U/L (14-35); Albumin 4.2 g/dL (3.8-4.9); Albumin/Globulin Ratio 1.75 Ratio (1.60-3.17); Alkaline Phosphatase 75 U/L (41-126); BUN/Creat Ratio 9.17 Ratio (12.00-20.00); Calcium 9.2 mg/dL (8.7-10.3); Carbon Dioxide 26.7 mmol/L (21.6-31.8); Chloride 102 mmol/L (96-109); Globulin 2.4 g/dL (1.6-3.3); Glucose 114 mg/dL (70-110); Potassium 4.3 mmol/L (3.5-5.5); Sodium 139 mmol/L (135-145); Total Bilirubin 0.7 mg/dL (0.3-1.2); Total Protein 6.6 g/dL (6.2-8.2)
[2023-10-06 16:35] LABS: Thyroid Peroxidase Antibodies 11.3 U/mL (0.0-33.0)
== END | disposition home or self-care (01) ==
LOC: LABWHC1 09:02
PROVIDERS: ATTEND Allergy & Immunology
DX: E04.1 Nontoxic single thyroid nodule (principal); R53.83 Other fatigue
CPT/HCPCS: 36415; 80053; 84443; 86376; 86800